=== PATIENT | male | born 1935 | race Caucasian/White ===

== ENCOUNTER 2019-12-05 11:05 | Day surgery (SDC) | payer MEDICARE, OTHER ==
[~2019-12-05] VITALS: Ht 175.3 cm; Wt 70.0 kg
[~2019-12-05 11:05] MED LIST: AMLO-150 PO; ASPI81TA45 PO; CHOL10003 PO; DENO60DI IV; DUTA0.5C PO; MULT-516 PO; PSYL174P2 PO; ROSU5TAB PO; TRIA15CR53 TP
[2019-12-05] MEDS ORDERED: LACTATED RINGERS 1,000 ML IV SCH (11:30)
[2019-12-05 11:37] VITALS: BP 173/97
[2019-12-05] MEDS ORDERED: PROMETHAZINE 25 MG SUPP PR PRN (13:30)
[2019-12-05] MEDS ORDERED: OXYcodone 5 MG/5 ML ORAL.SOL UDC PO PRN (13:30)
[2019-12-05] MEDS ORDERED: FENTANYL PF 100 MCG/2ML IV PRN (13:30)
[2019-12-05] MEDS ORDERED: hydrALAzine 20 MG/ML, 1ML IV PRN (13:30)
[2019-12-05] MEDS ORDERED: ONDANSETRON ODT 8 MG PO PRN (13:30)
[2019-12-05] MEDS ORDERED: ONDANSETRON 2MG/ML, 2ML IV PRN (13:30)
[2019-12-05] MEDS ORDERED: ACETAMINOPHEN 325 MG TABLET PO PRN (13:30)
[2019-12-05] MEDS ORDERED: PROMETHAZINE 25 MG/ML, 1ML IV PRN (13:30)
[2019-12-05] MEDS ORDERED: LABETALOL 5MG/ML, 20ML IV PRN (13:30)
[2019-12-05] MEDS ORDERED: HYDROmorphone 2 MG/ML, 1ML IVPush PRN (13:30)
[2019-12-05] MEDS ORDERED: FENTANYL PF 250 MCG/5ML ONE (13:35)
[2019-12-05] MEDS ORDERED: ONDANSETRON 2MG/ML, 2ML ONE (14:49)
[2019-12-05] MEDS ORDERED: CEFAZOLIN 1,000 MG ONE (14:49)
[2019-12-05] MEDS ORDERED: DEXAMETHASONE 4 MG/ML, 1ML ONE (14:49)
[2019-12-05] MEDS ORDERED: PROPOFOL 10 MG/ML, 20ML ONE (14:49)
[2019-12-05] MEDS ORDERED: hydrALAzine 20 MG/ML, 1ML ONE (15:25)
[2019-12-05] MEDS ORDERED: EPHEDRINE 50 MG/ML, 1ML ONE (16:02)
== END 2019-12-05 17:45 | disposition home or self-care (01) ==
LOC: OUT 11:05
PROVIDERS: ATTEND Urology
DX: N40.1 Benign prostatic hyperplasia with lower urinary tract symptoms (principal); N13.8 Other obstructive and reflux uropathy; I10 Essential (primary) hypertension; E78.5 Hyperlipidemia, unspecified; Z79.899 Other long term (current) drug therapy; Z79.84 Long term (current) use of oral hypoglycemic drugs; Z87.891 Personal history of nicotine dependence; Z98.890 Other specified postprocedural states; Z87.440 Personal history of urinary (tract) infections
CPT/HCPCS: 52648; C1769; J0360; J0690; J1100; J2405; J2704; J3010; J7120